=== PATIENT | female | born 1985 | race African-American/Black ===

== ENCOUNTER → 2019-02-05 | Outpatient (CLI) | payer BC ==
[2016-07-04 00:22] VITALS: BP 122/68
[~2019-02-05] MED LIST: IBUP-1060 PO
--- NOTE | 2019-02-06 19:10 | SLEEP ---
DATE OF STUDY: 02/05/2019 SLEEP STUDY ATTENDING PHYSICIAN: Dr. Mirza Bland. The patient is a 33-year-old who weighs 228 pounds with a BMI of 45. The patient's Winlock score was 8. The patient underwent sleep study performed at [facility]. During the night study, the patient spent 423 minutes in bed and slept for 403 minutes with a sleep efficiency of 95%. Sleep latency was 7 minutes with a REM latency of 167 minutes. Overall, sleep architecture showed normal stage 1 sleep, increased stage 2 sleep, normal slow wave sleep and normal REM sleep. During the night study, the patient had no obstructive apneas. There were 3 mixed apneas and 4 central apneas and 1 hypopnea. The patient's apnea hypopnea index was only 1 per hour, supine index 1 per hour and a REM index of 4 per hour. EKG monitoring revealed mean heart rate of 85 beats per minute. No arrhythmias observed. No PLMS observed. Nocturnal oximetry study revealed no clinically significant desaturation. Mean saturation of 98% with the lowest of 90%. Due to low AHI, the patient did not meet the split night criteria for CPAP initiation. IMPRESSION: 1. No clinically significant sleep disordered breathing. The patient's AHI for the entire night was 1 per hour. 2. No clinically significant nocturnal hypoxia. 3. No clinically significant PLMS. RECOMMENDATIONS: 1. The patient did not meet the criteria for CPAP initiation. 2. Weight loss is advised. 3. Avoid [employer] depressants. 4. If clinical suspicion for other disorders such as narcolepsy or idiopathic hypersomnia is high, then consider doing multiple sleep latency tests. JOSE ESPAAÑ MD DR: MARY/bryn JOB#: [id number] / [id number] MIRZA Ochoa MD
== END | disposition home or self-care (01) ==
LOC: SLPLAB 19:29
PROVIDERS: ATTEND Family Medicine
DX: R47.9 Unspecified speech disturbances (principal); R53.83 Other fatigue
CPT/HCPCS: 95810